=== PATIENT | male | born 1945 | race Asian ===

== ENCOUNTER 2021-10-21 20:35 | Emergency (ER) | payer OTHER ==
[~2021-10-21] VITALS: Ht 167.6 cm; Wt 67.1 kg
[2021-10-21 21:01] LABS: PLATELET COUNT 199 K/uL (142-355)
[2021-10-21 21:14] LABS: POTASSIUM 3.8 mmol/L (3.6-5.2)
[2021-10-21 22:06] VITALS: BP 138/89; TEMP 98.6
[2021-10-22] MEDS ORDERED: VAZALORE81 MG PO (00:10)
[2021-10-22] MEDS ORDERED: ALLO100T22 PO (00:10)
[2021-10-22] MEDS ORDERED: DONEPEZIL HYDRO10 M1 PO (00:11)
[2021-10-22] MEDS ORDERED: TAMS0.4C PO (00:11)
[2021-10-22] MEDS ORDERED: LOSA50TA PO (00:12)
[2021-10-22] MEDS ORDERED: LINZESS290 MCG PO (00:12)
[2021-10-22] MEDS ORDERED: PROZAC10 MG PO (00:13)
[2021-10-22] MEDS ORDERED: MELATONIN MAXIMU5 MG PO (00:13)
[2021-10-22] MEDS ORDERED: VITAMIN D1000 UNI1 PO (00:13)
[2021-10-22] MEDS ORDERED: MEDR10TA4 PO (00:14)
[2021-10-22] MEDS ORDERED: BUSP5TAB2 PO (00:14)
[2021-10-22] MEDS ORDERED: TYLENOL325 MG PO (00:19)
[2021-10-22] MEDS ORDERED: ACETAMINOPHEN RE (00:19)
[2021-10-22] MEDS ORDERED: ALUM-67 PO (00:21)
[2021-10-22] MEDS ORDERED: [UNRECOGNIZED DRUG - CODE] PO (00:22)
[2021-10-22] MEDS ORDERED: ALBU90AE13 INH (00:23)
[2021-10-22] MEDS ORDERED: BISA10SU8 RE (01:13)
[2021-10-22] MEDS ORDERED: FLEET ENEMA RE (01:15)
[2021-10-22] MEDS ORDERED: LOPERAMIDE2 MG PO (01:21)
[2021-10-22] MEDS ORDERED: ANTI-DIARR1 MG/7.5 M PO (01:22)
[2021-10-22] MEDS ORDERED: MILK OF MA400 MG/5 M PO (01:24)
== END 2021-10-21 22:06 | disposition still patient (30) ==
LOC: ED 20:35
PROVIDERS: Hospitalist
DX: F03.91 Unspecified dementia, unspecified severity, with behavioral disturbance (principal); F32.9 Major depressive disorder, single episode, unspecified; Z11.52 Encounter for screening for COVID-19; Z04.6 Encounter for general psychiatric examination, requested by authority
CPT/HCPCS: 36415; 80053; 81002; 85027; 87635; 93005; 99283; U0003